=== PATIENT | male | born 1955 | race Caucasian/White ===

== ENCOUNTER 2017-09-27 18:36 | Emergency (ER) | payer BC ==
[~2017-09-27] VITALS: Ht 177.8 cm; Wt 83.9 kg
[2017-09-27] MEDS ORDERED: NORVASC2.5 MG (18:48)
== END 2017-09-27 20:16 | disposition home or self-care (01) ==
LOC: ER 18:36
DX: J40 Bronchitis, not specified as acute or chronic (principal)